=== PATIENT | male | born 1945 | race Caucasian/White ===

== ENCOUNTER 2018-10-04 22:34 | Inpatient (IN) ==
--- NOTE | 2018-10-04 23:29 | RAD ---
Acute abdominal series, four views Indication: Diffuse abdominal pain Comparison: None Findings: The heart is normal in size. Prior CABG changes noted. No focal infiltrate, effusion or pneumothorax is identified. Moderate stool is present throughout the colon. The visualized bowel gas pattern is nonspecific but nonobstructive. No free air or pneumatosis is identified. Suspected bilateral renal stones are present, measuring 1 cm on the right and 4 mm on the left. Imaged osseous structures are grossly intact. Impression: No acute cardiopulmonary abnormality. Nonspecific but nonobstructive bowel gas pattern. Moderate stool throughout the colon suggests constipation. Suspected bilateral nephrolithiasis. Reported By:
--- NOTE | 2018-10-04 23:38 | DR.ABDMALE ---
HPI Time seen Time Seen by Provider: 10/04/18 23:38 PCP Primary Care Physician: FERMIN BRADY HPI comment HPI Comment: PATIENT HAVE EPIGASTIC PAIN RADIATING TO THE BACK WITH NAUSEA. PAIN IS SHARP AND GETTING WORSE.NOTWANTING TO EAT THIS MAKE PAIN WORSE. NO FEVER OR DYSURIA. NO FEVER. NEXIUM DID NOT HELLP PAIN. PATIENT WANTING RELIEF FROM PAIN. MUCLES ARE CRAMPING. Complaint Chief Complaint Doctors Comments: ABDOMINAL PAIN TIMES ONE DAY. Chief Complaint:: DIFFUSE ABD PAIN (EPIGASTRIC WITH PALPITATION, BILATERAL FLANK, ALL QUADRANTS, LOWER BACK PAIN), NAUSEA, BILATERAL LEG/MUSCLE CRAMPS. Self Treatment fo Chief Complaint: METAMUCIL DAILY Reviewed Nurses Notes Review: Yes Mode of arrival Mode of Arrival: Ambulatory Timing Onset of Chief Complaint: 10/04/18 Came on: Suddenly Duration Duration: Constant Duration: Hours Location Location: RUQ, LUQ and Epigastric Severity Severity: Moderate; denies None Quality Quality: Sharp Context Onset: Suddenly History of: None Modifying factors Worsening Factors: Food Improving Factors: Nothing Associated signs and symptoms Associated Signs and Symptoms: Nausea, Vomiting and Other (MUSCLES CRAMPING.) PMH PMH Past Medical History: Yes Past Medical History: Coronary Artery Disease, Dyslipidemia, Hypertension and Kidney Stones Past Surgical History: Yes Surgical History: Angioplasty/Stents and CABG/Valve Surgery Past Surgical History Comment: CATARACT SURGERY, RETINA DETACHMENT BILATERAL, RIGHT EYE STENT Family History History of Family Medical Conditions: Yes Social History Does patient currently use any type of tobacco product: No Have you used tobacco products in the last 12 months: No Type of Tobacco Use: None Alcohol Use: None Do you use any recreational Drugs:: No Lives With: Spouse Lives Where: Home infectious screening Have you traveled outside the country in the last 6 months?: No Isolation: Standard ROS Review of Systems Constitutional: Weakness and Fatigue Eyes: No Symptoms Reported ENTM: No Symptoms Reported Respiratoy: No Symptoms Reported Cardiovascular: No Symptoms Reported Gastrointestinal/Abdominal: Abdominal Pain, Nausea and Vomiting Genitourinary: No Symptoms Reported Neurological: Weakness Musculoskeletal: Muscle Pain Integumentary: No Symptoms Reported Hematologic/Lymphatic: No Symptoms Reported Endocrine: Decreased Appetite Psychiatric: No Symptoms Reported All Other Systems: Reviewed and Negative PE Vital Signs Vital Signs: Temp Pulse Pulse Resp BP BP BP 10/05/18 03:15 98.2 F 74 16 129/64 10/05/18 03:02 73 16 125/62 10/04/18 22:35 98.8 F 96 H 18 104/72 01/05/16 08:22 138/77 Pulse Ox 10/05/18 03:15 98 10/05/18 03:02 10/04/18 22:35 97 01/05/16 08:22 General Limitations: No Limitations General Appearance: Alert and In No Apparent Distress Head Head Exam: Normal Inspection Eyes Eye exam: Normal Appearance ENT ENT Exam: Normal Oropharynx, Normal External Ear Exam and TM's Normal Bilaterally Neck Neck Exam: Normal Inspection and Trachea Midline; negative Tenderness, M eningismus and Lymphadenopathy Chest Chest Inspection: Normal Inspection and Symmetric Chest Wall Rise Respiratory Respiratory Exam: Normal Lung Sounds Bilat Respiratory Exam: Bilateral: Clear to Auscultation Cardiovascular Cardiovascular Exam: Regular Rate and Normal Rhythm Abdominal Exam Abdominal Exam: Normal Bowel Sounds, Soft and Tenderness Abdominal Tenderness: RUQ, LUQ and Epigastrium Rectal Rectal Exam: Deferred Back Back Exam: Normal Inspection Extremeties Extremities Exam: Normal Inspection Exam: Male: Deferred Neurologic Neurological Exam: Alert, Oriented X3 and CN II-XII Intact; negative Motor Sensory Deficit Psychiatric Psychiatric Exam: Normal Affect and Normal Mood Skin Skin Exam: Dry MDM Differential Diagnosis Differential Diagnosis: Cholcystitis, Cholelethiasis, Constipation, Diverticular disease, Gastritus/PUD, Gastroenteritis, Urinary obstruction, Urinary tract infection and Urolithiasis COURSE Treatment Treatment: SEE ORDERS. Consultation Consultation Comments: DISCUSS PATIENT WITH DR. WAGNER. HE WILL ADMIT PATIENT. Education/Counseling Education/Counseling: Patient and Family Educated On: Diagnosis ROR Labs Reviewed Laboratory Results Reviewed?: Yes Result Diagrams: 10/05/18 01:05 10/05/18 01:05 Laboratory: WBC 11.9 X10^3/uL (3.6-10.0) H 10/05/18 01:05 RBC 4.70 X10^6/uL (4.7-6.0) 10/05/18 01:05 Hgb 14.6 g/dL (13.5-18.0) 10/05/18 01:05 Hct 43.2 % (42.0-54.0) 10/05/18 01:05 MCV 91.8 fL (80.0-100.0) 10/05/18 01:05 MCH 30.9 pg (27.0-34.0) 10/05/18 01:05 MCHC 33.7 g/dL (33.0-35.0) 10/05/18 01:05 RDW 14.2 % (11.6-16.5) 10/05/18 01:05 Plt Count 236 X10^3/uL (150.0-450.0) 10/05/18 01:05 MPV 7.0 fL (7.4-11.0) L 10/05/18 01:05 Neut % (Auto) 71.6 % (42.0-75.0) 10/05/18 01:05 Lymph % (Auto) 18.1 % (21.0-51.0) L 10/05/18 01:05 [place] % (Auto) 7.4 % (0.0-13.0) 10/05/18 01:05 Eos % (Auto) 2.4 % (0.9-2.9) 10/05/18 01:05 Baso % (Auto) 0.5 % (0.2-1.0) 10/05/18 01:05 Neut # (Auto) 8.5 x10^3/uL (2.2-4.8) H 10/05/18 01:05 Lymph # (Auto) 2.2 X10^3/uL (1.3-2.9) 10/05/18 01:05 [place] # (Auto) 0.9 x10^3/uL (0.3-0.8) H 10/05/18 01:05 Eos # (Auto) 0.3 x10^3/uL (0.0-0.2) H 10/05/18 01:05 Baso # (Auto) 0.1 X10^3/uL (0.0-0.1) 10/05/18 01:05 Absolute Nucleated RBC 0.0 /100WBC 10/05/18 01:05 Sodium 139 mmol/L (136-145) 10/05/18 01:05 Corrected Sodium TNP 10/05/18 01:05 Potassium 4.7 mmol/L (3.5-5.1) 10/05/18 01:05 Chloride 102 mmol/L (98-107) 10/05/18 01:05 Carbon Dioxide 28.5 mmol/L (21-32) 10/05/18 01:05 BUN 16 mg/dL (7-18) 10/05/18 01:05 Creatinine 1.24 mg/dL (0.70-1.30) 10/05/18 01:05 Est GFR (MDRD) Af Amer > 60 (>60) 10/05/18 01:05 Est GFR (MDRD) Non-Af > 60 (>60) 10/05/18 01:05 Glucose 107 mg/dL (65-99) H 10/05/18 01:05 Calcium 9.3 mg/dL (8.5-10.1) 10/05/18 01:05 Corrected Calcium TNP 10/05/18 01:05 Total Bilirubin 0.80 mg/dL (0.2-1.0) 10/05/18 01:05 AST 25 Units/L (15-37) 10/05/18 01:05 ALT 36 Units/L (12-78) 10/05/18 01:05 Alkaline Phosphatase 36 Units/L (46-116) L 10/05/18 01:05 Total Protein 7.6 g/dL (6.4-8.2) 10/05/18 01:05 Albumin 4.2 g/dL (3.4-5.0) 10/05/18 01:05 Globulin 3.4 g/dL (2.5-4.5) 10/05/18 01:05 Albumin/Globulin Ratio 1.2 Ratio (1.1-2.1) 10/05/18 01:05 Amylase 327 Units/L (25-115) H 10/05/18 01:05 Lipase 3601 Units/L (73-393) H 10/05/18 01:05 Specimen Type Clean catch urine 10/05/18 01:52 Urine Color Yellow (YELLOW) 10/05/18 01:52 Urine Appearance Clear (CLEAR) 10/05/18 01:52 Urine pH 6.5 (5.0 - 8.0) 10/05/18 01:52 Ur Specific [place] 1.015 (1.000-1.030) 10/05/18 01:52 Urine Protein 1+ (NEGATIVE) 10/05/18 01:52 Urine Glucose (UA) Negative (NEGATIVE) 10/05/18 01:52 Urine Ketones Negative (NEGATIVE) 10/05/18 01:52 Urine Occult Blood Negative (NEGATIVE) 10/05/18 01:52 Urine Nitrite Negative (NEGATIVE) 10/05/18 01:52 Urine Bilirubin Negative (NEGATIVE) 10/05/18 01:52 Urine Urobilinogen Normal (NORMAL) 10/05/18 01:52 Ur Leukocyte Esterase Negative (NEGATIVE) 10/05/18 01:52 Urine RBC 0-2 /HPF (NONE SEEN) 10/05/18 01:52 Urine WBC 0-2 /HPF (NONE SEEN) 10/05/18 01:52 Ur Squamous Epith Cells Rare /HPF (NEGATIVE) 10/05/18 01:52 Urine Bacteria Negative /HPF (NEGATIVE) 10/05/18 01:52 Ur Culture Indicated? No/not indicated 10/05/18 01:52 XRAY XRAY Interpreted by: Radiologist XRAY Findings: REPORT DISCUSS WITH PATIENT AND FAMILY.
[2018-10-05 01:13] LABS: BASOPHILS # (AUTO) 0.1 X10^3/uL (0.0-0.1); BASOPHILS % (AUTO) 0.5 % (0.2-1.0); EOSINOPHILS # (AUTO) 0.3 x10^3/uL (0.0-0.2); EOSINOPHILS % (AUTO) 2.4 % (0.9-2.9); HEMATOCRIT 43.2 % (42.0-54.0); HEMOGLOBIN 14.6 g/dL (13.5-18.0); LYMPHOCYTES # (AUTO) 2.2 X10^3/uL (1.3-2.9); LYMPHOCYTES % (AUTO) 18.1 % (21.0-51.0); MEAN CORPUSCULAR HEMOGLOBIN 30.9 pg (27.0-34.0); MEAN CORPUSCULAR HGB CONC 33.7 g/dL (33.0-35.0); MEAN CORPUSCULAR VOLUME 91.8 fL (80.0-100.0); MONOCYTES # (AUTO) 0.9 x10^3/uL (0.3-0.8); MONOCYTES % (AUTO) 7.4 % (0.0-13.0); NEUTROPHILS # (AUTO) 8.5 x10^3/uL (2.2-4.8); NEUTROPHILS % (AUTO) 71.6 % (42.0-75.0); PLATELET COUNT 236 X10^3/uL (150.0-450.0); RED CELL DISTRIBUTION WIDTH 14.2 % (11.6-16.5); WHITE BLOOD COUNT 11.9 X10^3/uL (3.6-10.0)
[2018-10-05 01:25] LABS: ALANINE AMINOTRANSFERASE 36 Units/L (12-78); ALBUMIN 4.2 g/dL (3.4-5.0); ALKALINE PHOSPHATASE 36 Units/L (46-116); AMYLASE 327 Units/L (25-115); ASPARTATE AMINO TRANSFERASE 25 Units/L (15-37); BLOOD UREA NITROGEN 16 mg/dL (7-18); CALCIUM 9.3 mg/dL (8.5-10.1); CARBON DIOXIDE 28.5 mmol/L (21-32); CHLORIDE 102 mmol/L (98-107); CREATININE 1.24 mg/dL (0.70-1.30); SODIUM 139 mmol/L (136-145); TOTAL PROTEIN 7.6 g/dL (6.4-8.2); eGFR NON BLACK RACES > 60 (>60)
[2018-10-05 01:39] LABS: LIPASE 3601 Units/L (73-393)
--- NOTE | 2018-10-05 01:44 | CT ---
CT abdomen and pelvis without contrast Indication: Abdominal pain, nausea, constipation Technique: Helical CT images of the abdomen and pelvis were obtained without IV contrast. Reformatted images in the coronal and sagittal planes were also generated for review. Comparison: None Findings: Lung bases are clear. No aggressive osseous lesions are identified. Within the limits of a noncontrast exam, the unenhanced liver is diffusely steatotic without gross focal lesion. The gallbladder, spleen and adrenals are unremarkable. There are nonobstructing stones within the lower poles of both kidneys, measuring 1 cm on the right and 5 mm on the left. There is no obstructive uropathy. There is subtle stranding within the upper abdomen, which is centered about the pancreatic head, suggestive for acute pancreatitis. No discrete drainable pancreatic or peripancreatic fluid collection is identified. Evaluation for necrosis is limited without intravenous contrast. There is mild likely reactive thickening of the adjacent duodenum. Mild colonic diverticulosis is noted without evidence of acute diverticulitis. The remainder of the GI tract is without obstruction or gross inflammation. Appendix is normal. There is moderate calcification of the aortoiliac system. There is aneurysmal dilatation of the infrarenal abdominal aorta, which measures up to 4 cm in AP diameter. There are curvilinear intraluminal calcifications within the aneurysm sac, possibly representing chronic dissection. Further evaluation of the vascular structures is limited without intravenous contrast. The prostate is enlarged. The urinary bladder is grossly normal. No free air, significant free fluid or bulky lymphadenopathy is identified. Impression: Subtle stranding about the pancreatic head is suggestive for acute pancreatitis. Clinical as well as lab correlation with amylase and lipase levels recommended. Evaluation for necrosis and additional associated complication is not possible without intravenous contrast. Mild thickening of the duodenum is likely reactive from #1 above. Duodenitis not excluded. Hepatic steatosis, nonobstructing bilateral nephrolithiasis, colonic diverticulosis, infrarenal abdominal aortic aneurysm, prostatomegaly and additional findings as above. Reported By:
[2018-10-05] MEDS ORDERED: MORPHINE SULFATE INJ 4 MG IVP PRN (02:10)
[2018-10-05] MEDS ORDERED: ZOFRAN INJ 4 MG VIAL IVP PRN (02:10)
[2018-10-05] MEDS ORDERED: PEPCID 20 MG IV PREMIX* 20 MG/50 ML BAG IV PRN (02:18)
[2018-10-05 02:26] LABS: BILIRUBIN,URINE NEGATIVE (NEGATIVE); BLOOD/HEMOGLOBIN,URINE NEGATIVE (NEGATIVE); GLUCOSE, URINE NEGATIVE (NEGATIVE); KETONES,URINE NEGATIVE (NEGATIVE); LEUKOCYTE ESTERASE ,URINE NEGATIVE (NEGATIVE); NITRITES,URINE NEGATIVE (NEGATIVE); PH,URINE 6.5 (5.0 - 8.0); PROTEIN,URINE 1+ (NEGATIVE); UROBILINOGEN,URINE NORMAL (NORMAL)
[2018-10-05 02:34] LABS: APPEARANCE,URINE CLEAR (CLEAR); COLOR,URINE YELLOW (YELLOW); RBC,URINE 0-2 /HPF (NONE SEEN)
[2018-10-05 02:35] LABS: BACTERIA,URINE NEGATIVE /HPF (NEGATIVE); SQUAMOUS EPITHELIAL CELL,UR RARE /HPF (NEGATIVE)
[2018-10-05] MEDS: NS 1000 ML 1,000 ML IV SCH ×5 (02:48→23:03)
[2018-10-05] MEDS ORDERED: PSYLLIUM HUSK PO SCH (03:10)
[2018-10-05 06:38] LABS: AMYLASE 279 Units/L (25-115); BLOOD UREA NITROGEN 14 mg/dL (7-18); CALCIUM 9.1 mg/dL (8.5-10.1); CARBON DIOXIDE 27.3 mmol/L (21-32); CHLORIDE 102 mmol/L (98-107); CREATININE 1.21 mg/dL (0.70-1.30); SODIUM 138 mmol/L (136-145); eGFR NON BLACK RACES > 60 (>60)
[2018-10-05 07:07] LABS: LIPASE 3016 Units/L (73-393)
[2018-10-05] MEDS ORDERED: PATIENT'S HOME MEDICATION (Clopidogrel Bisulfate [Plavix] 75 MG) PO SCH (09:00)
[2018-10-05] MEDS ORDERED: PLAVIX PO SCH (09:00)
[2018-10-05] MEDS ORDERED: TRICOR TAB 160 MG PO SCH (09:00)
[2018-10-05] MEDS ORDERED: ZYLOPRIM PO SCH (09:00)
[2018-10-05] MEDS ORDERED: COZAAR PO SCH (09:00)
[2018-10-05 11:08] VITALS: BMI 30.8
[2018-10-05] MEDS: TYLENOL 325 MG TAB PO PRN ×2 (11:43→20:16)
[2018-10-05] MEDS: TOPROL XL PO SCH (11:44)
--- NOTE | 2018-10-05 13:07 | MRI ---
HISTORY: Abdominal pain Study: MRI /MRCP abdomen without contrast Comparison: CT same day Technique: Multiplanar multisequence MRI of the abdomen was obtained utilizing standard departmental protocol. MRCP protocol was utilized. Findings: The lung bases appear clear. Small right renal cyst is noted. Solid organs otherwise stable in their appearance. There is some mild edema around the pancreatic head which could be due to pancreatitis or duodenitis as previously mentioned on the prior CT. The gallbladder is normal with no stones. The intra and extrahepatic biliary ducts are normal in caliber and contour. There is no evidence for choledocholithiasis. IMPRESSION: Normal MRCP. Stable mild stranding near the pancreatic head and duodenum could be due to pancreatitis or duodenitis and clinical correlation will be needed Reported By:
[2018-10-05 13:41] LABS: BASOPHILS # (AUTO) 0.1 X10^3/uL (0.0-0.1); BASOPHILS % (AUTO) 0.5 % (0.2-1.0); EOSINOPHILS # (AUTO) 0.3 x10^3/uL (0.0-0.2); HEMATOCRIT 40.9 % (42.0-54.0); LYMPHOCYTES # (AUTO) 2.2 X10^3/uL (1.3-2.9); LYMPHOCYTES % (AUTO) 19.2 % (21.0-51.0); MEAN CORPUSCULAR HEMOGLOBIN 31.3 pg (27.0-34.0); MEAN CORPUSCULAR HGB CONC 34.1 g/dL (33.0-35.0); MEAN CORPUSCULAR VOLUME 91.6 fL (80.0-100.0); MONOCYTES # (AUTO) 1.2 x10^3/uL (0.3-0.8); MONOCYTES % (AUTO) 10.5 % (0.0-13.0); NEUTROPHILS # (AUTO) 7.5 x10^3/uL (2.2-4.8); NEUTROPHILS % (AUTO) 66.8 % (42.0-75.0); PLATELET COUNT 232 X10^3/uL (150.0-450.0); RED BLOOD COUNT 4.47 X10^6/uL (4.7-6.0); RED CELL DISTRIBUTION WIDTH 14.3 % (11.6-16.5); WHITE BLOOD COUNT 11.3 X10^3/uL (3.6-10.0)
[2018-10-05 13:46] LABS: AMYLASE 207 Units/L (25-115)
[2018-10-05 13:47] LABS: LIPASE 1713 Units/L (73-393)
--- NOTE | 2018-10-05 15:37 | US ---
HISTORY: Abdominal pain Study: Right upper quadrant abdominal ultrasound Comparison: None Technique: Multiple millard scale and color flow Doppler images of the right upper quadrant were obtained. Findings: The liver appears echogenic probably due to fatty infiltration.. No focal intraparenchymal mass or intrahepatic biliary ductal dilatation can be observed. The gallbladder fails to demonstrate evidence for cholelithiasis or layering sludge. The common bile duct is unremarkable measuring 3 mm in width. No pericholecystic fluid or gallbladder wall thickening can be observed. The right kidney appears normal in size without focal parenchymal mass or nephrolithiasis. The right kidney measurers 13.1 cm in length. No hydronephrosis or perirenal fluid can be observed. The pancreatic head and body are unremarkable. The pancreatic tail is largely obscured by overlying bowel gas. IMPRESSION: 1. Probable fatty liver otherwise negative exam. Reported By:
[2018-10-05] MEDS: PSYLLIUM HUSK PO SCH (17:30)
[2018-10-06] MEDS: NS 1000 ML 1,000 ML IV SCH ×2 (02:43→10:18)
[2018-10-06 05:23] LABS: BASOPHILS % (AUTO) 0.5 % (0.2-1.0); EOSINOPHILS # (AUTO) 0.4 x10^3/uL (0.0-0.2); EOSINOPHILS % (AUTO) 4.1 % (0.9-2.9); HEMATOCRIT 42.6 % (42.0-54.0); HEMOGLOBIN 14.3 g/dL (13.5-18.0); LYMPHOCYTES # (AUTO) 2.1 X10^3/uL (1.3-2.9); LYMPHOCYTES % (AUTO) 23.3 % (21.0-51.0); MEAN CORPUSCULAR HEMOGLOBIN 31.1 pg (27.0-34.0); MEAN CORPUSCULAR HGB CONC 33.7 g/dL (33.0-35.0); MEAN CORPUSCULAR VOLUME 92.5 fL (80.0-100.0); MEAN PLATELET VOLUME 7.2 fL (7.4-11.0); MONOCYTES # (AUTO) 0.9 x10^3/uL (0.3-0.8); MONOCYTES % (AUTO) 10.1 % (0.0-13.0); NEUTROPHILS # (AUTO) 5.4 x10^3/uL (2.2-4.8); PLATELET COUNT 221 X10^3/uL (150.0-450.0); RED BLOOD COUNT 4.61 X10^6/uL (4.7-6.0); RED CELL DISTRIBUTION WIDTH 14.2 % (11.6-16.5); WHITE BLOOD COUNT 8.8 X10^3/uL (3.6-10.0)
[2018-10-06 05:32] LABS: ALANINE AMINOTRANSFERASE 30 Units/L (12-78); ALBUMIN 3.7 g/dL (3.4-5.0); ALKALINE PHOSPHATASE 32 Units/L (46-116); AMYLASE 109 Units/L (25-115); ASPARTATE AMINO TRANSFERASE 20 Units/L (15-37); BLOOD UREA NITROGEN 15 mg/dL (7-18); CALCIUM 9.1 mg/dL (8.5-10.1); CARBON DIOXIDE 25.3 mmol/L (21-32); CHLORIDE 102 mmol/L (98-107); CREATININE 1.19 mg/dL (0.70-1.30); LIPASE 564 Units/L (73-393); SODIUM 137 mmol/L (136-145); TOTAL PROTEIN 7.3 g/dL (6.4-8.2); eGFR NON BLACK RACES > 60 (>60)
[2018-10-06] MEDS: TOPROL XL PO SCH (08:27)
[2018-10-06] MEDS: PSYLLIUM HUSK PO SCH (08:36)
[2018-10-06] MEDS ORDERED: PATIENT'S HOME MEDICATION OP SCH (09:00)
[2018-10-06] MEDS ORDERED: PRED FORTE 1 % OP SCH (09:00)
[2018-10-06 12:17] VITALS: BP 109/68
== END 2018-10-06 14:00 | disposition home or self-care (01) | DRG 440 ==
LOC: ER 22:35 → MED/SURG 22:35 → OBSVTOIN 10-05 02:09 → MED/SURG 10-05 03:04
PROVIDERS: ADMIT Internal Medicine; ATTEND Internal Medicine
DX: K85.90 Acute pancreatitis without necrosis or infection, unspecified; I25.10 Atherosclerotic heart disease of native coronary artery without angina pectoris; R10.84 Generalized abdominal pain; E78.2 Mixed hyperlipidemia; I10 Essential (primary) hypertension
CPT/HCPCS: 36415; 74022; 74176; 74181; 76705; 80048; 80053; 81001; 82150; 83690; 85025; 96365; 96374; 96375; 99282; 99284; A4222; S0028; J2270; J2405; J3490; J7030